=== PATIENT | female | born 1935 | race Caucasian/White ===

== ENCOUNTER → 2019-05-19 11:05 | Outpatient (NON) | payer MEDICARE, SELFPAY ==
[2019-05-19 11:25] LABS: Influenza Control Valid (Valid)
== END ==
PROVIDERS: Visit Provider Family Medicine
DX: R05 Cough (principal); R50.9 Fever, unspecified
CPT/HCPCS: 87804

== ENCOUNTER 2019-12-18 13:45 | Outpatient (CLI) | payer MEDICARE, SELFPAY | END 2019-12-18 13:46 | disposition home or self-care (01) | LOC: CHSLAB 13:49 | PROVIDERS: Visit Provider Specialist | DX: C44.529 Squamous cell carcinoma of skin of other part of trunk (principal) | CPT/HCPCS: 88305 ==

== ENCOUNTER 2020-02-21 06:21 | Outpatient (NON) | payer MEDICARE, SELFPAY ==
[2020-02-21 07:00] LABS: Hemoglobin A1C 5.4 % (<5.7)
[2020-02-21 07:22] LABS: Anion Gap 9 mmol/L (8-16); Blood Urea Nitrogen 27 mg/dL (7-18); Calcium 10.6 mg/dL (8.5-10.1); Carbon Dioxide 31 mmol/L (21-32); Chloride 105 mmol/L (98-108); Cholesterol 202 mg/dL (0-200); Estimated Glomerular Filt Rate > 60; Glucose 96 mg/dL (70-99); HDL Direct 43 mg/dL (40-60); LDL Cholesterol Calculated 136 mg/dL (<130); Osmolality Calculated 305 mOsm/kg (285-295); Potassium 3.5 mmol/L (3.5-5.1); Sodium 145 mmol/L (136-145); Thyroid Stimulating Hormone 4.54 uIU/mL (0.36-3.74); Triglycerides 113 mg/dL (0-150)
[2020-02-27 12:24] LABS: Vitamin D 25 Hydroxy 34 ng/mL (30-100)
== END 2020-02-21 06:22 ==
LOC: CHSLAB 06:22
PROVIDERS: Visit Provider Registered Nurse
DX: E55.9 Vitamin D deficiency, unspecified (principal); J45.909 Unspecified asthma, uncomplicated; I50.9 Heart failure, unspecified; E78.5 Hyperlipidemia, unspecified; I10 Essential (primary) hypertension; E11.9 Type 2 diabetes mellitus without complications
CPT/HCPCS: 36415; 80048; 80061; 82306; 83036; 84443

== ENCOUNTER 2020-04-02 19:33 | Emergency (ER) | payer MEDICARE, SELFPAY ==
--- NOTE | ~2020-04-02 | XR_ITS ---
EXAMINATION: XR chest 1V portable INDICATION: Shortness of breath TECHNIQUE: Portable AP chest at 2056 hours COMPARISON: 07/27/2018 FINDINGS: There is a large hiatal hernia with much of the stomach appearing to be within the thorax. Passive atelectasis is noted adjacent to the hernia. No definite acute airspace opacities are identif ied. There is no pleural effusion or pneumothorax. The heart size is normal. There is advanced osteoa rthritis of the shoulders. IMPRESSION: 1. Large hiatal hernia with associated passive atelectasis. Reviewed, dictated and finalized at location A. RIBUTION TECH
--- NOTE | ~2020-04-02 | CT_ITS ---
EXAMINATION: CTA chest PE protocol DATE: 04/02/2020 22:39 INDICATION: Shortness of breath and hypoxia TECHNIQUE: Computed tomography angiography (CTA) of the chest was performed with 100 mL Omnipaque-350 intravenous contrast timed to evaluate the pulmonary arteries. Coronal maximum intensity projection 3D-reconstructions were created by the technologist. The dose-length product (DLP) was 1001.04 mGy-cm . Automated exposure control and iterative reconstruction technique were employed. COMPARISON: 02/02/2018 FINDINGS: The pulmonary arteries are well-opacified. No pulmonary embolism is identified. There is a large hiatal hernia. The stomach is nearly entirely intrathoracic with a small portion of the fundus intra-abdominal in location. There is passive atelectasis in the lower lobes caused by the hiatal her [place]. There are also minimal dependent airspace opacities in the lungs. No pleural effusion or pneumot horax is identified. There is right atrial enlargement of the heart. Areas of smooth interlobular sep zachery thickening are noted. No pathologically enlarged thoracic lymph nodes are identified. There is se laila thoracic spondylosis. The gallbladder is surgically absent. IMPRESSION: 1. No pulmonary embolism. 2. Large hiatal hernia with all but the gastric fundus intrathoracic in location. 3. Dependent airspace opacities consistent with atelectasis and possibly pneumonia. 3. Mild pulmonary edema. Reviewed, dictated and finalized at location A. LINING MACHINE FEEDER IMPRESSION: 1. No pulmonary embolism. 2. Large hiatal hernia with all but the gastric fundus intrathoracic in locatio n. 3. Dependent airspace opacities consistent with atelectasis and possibly pneumo [place]. 3. Mild pulmonary edema.
--- NOTE | ~2020-04-02 | CT_ITS ---
EXAMINATION: CT knee RT wo con DATE: 04/02/2020 20:12 INDICATION: Right knee pain, initial encounter TECHNIQUE: Computed tomography (CT) of the right knee was performed without intravenous contrast. The dose-length product (DLP) was 525.22 mGy-cm. Automated exposure control and iterative reconstruction technique were employed. COMPARISON: 07/09/2017 FINDINGS: The bones are osteopenic. There is an acute, traumatic, closed, impacted, transverse fractu re of the distal femur just above the femoral condyles. Alignment is essentially anatomic. There is m ild osteoarthritis of the knee. A small knee joint effusion is present. There is diffuse loss of musc le mass in the leg. Soft tissue swelling surrounds the knee. IMPRESSION: 1. Acute transverse fracture of the distal femur just above the femoral condyles. Reviewed, dictated and finalized at location A. INUOUS IMPROVEMENT BLACK BELT IMPRESSION: 1. Acute transverse fracture of the distal femur just above the femoral condyle s.
[2020-04-02 19:55] VITALS: BP 140/97; PULSE 86; RESP 18; TEMP 36.6; O2SAT 91
--- NOTE | 2020-04-02 20:10 | PC.NURSE ---
Pt noted to be satting between 88 and 91% on 4L NC, pt denies home O2, denies sob, lung sound clear, no increase work of breathing noted. Pt regularly undergoes covid testing at the group home and per EMS had a negative test this week. Day made aware.
--- NOTE | 2020-04-02 20:13 | ECG_ITS ---
Measurements Intervals [place] Rate: 119 P: [place]: 0 QRS: 47 QRSD: 103 T: 250 QT: 283 QTc: 399 Interpretive Statements ATRIAL FIBRILLATION WITH RAPID VENTRICULAR RESPONSE INCOMPLETE RIGHT BUNDLE BRANCH BLOCK ST-T WAVE ABNORMALITY IN ANTEROLAT/INF LEADS- CONSIDER ISCHEMIA BASELINE WANDER- I, II, III, AVR, AVF, V1-V6 ABNORMAL ECG Electronically Signed On 04-03-2020 8:59:23 DIRECTOR CONSUMER AFFAIRS by Royn Kapoor D.O.
--- NOTE | 2020-04-02 20:24 | ED.LOWEXIN ---
HPI - Extremity Injury (Lower) General Chief Complaint: Extremity Injury, Lower Stated Complaint: AMB Time Seen by Provider: 04/02/20 20:05 Source: patient and EMS Mode of arrival: EMS Limitations: clinical condition History of Present Illness HPI Narrative: Patient evidently fell out of wheelchair onto right knee and comes in with right knee pain. She is on an anticoagulant for her a fib. The right knee appears tender to touch, and appears swollen. It is estimated this happened 30 minutes ago. She complains of moderately severe pain, made worse by moving the knee. MD complaint: knee injury Place: home Severity: severe Severity scale (1-10): 7 Relieving factors: rest Exacerbating factors: movement Context: direct blow and other (fall) Associated symptoms: swelling Related Data Home Medications Medication Instructions Recorded Confirmed Ca cmb no.1-vit [id number] 1 tablet PO DAILY 04/02/20 04/02/20 [Vitamin D3 (calcium cit-phos)] carvedilol 6.25 mg PO BID 04/02/20 04/02/20 fluticasone propion-salmeterol 2 inh INHALATION PRN PRN 04/02/20 04/02/20 [Advair HFA] furosemide [Lasix] See Rx Instructions .ROUTE .COMPLEX 04/02/20 04/02/20 hydrochlorothiazide 12.5 mg PO BID 04/02/20 04/02/20 magnesium hydroxide [Ex-Lax Milk 400 mg PO DAILY PRN 04/02/20 04/02/20 of Magnesia] potassium chloride 20 meq PO BID 04/02/20 04/02/20 rivaroxaban [Xarelto] 20 mg PO DAILY 04/02/20 04/02/20 sertraline [Zoloft] 50 mg PO DAILY 04/02/20 04/02/20 Allergies Allergy/AdvReac Type Severity Reaction Status Date / Time atorvastatin Allergy Unknown Unknown Verified 04/02/20 20:18 Review of Systems Constitutional: Constitutional: Reports no additional constitutional complaints Eyes: Eyes: Reports no additional eye complaints ENT: Reports system reviewed and no additional complaints, except as documented Cardiovascular: Cardiovascular: Reports no additional cardiovascular complaints Respiratory: Comments: moderate shortness of breath Gastrointestinal: Gastrointestinal: Reports no additional gastrointestinal complaints Genitourinary: Genitourinary: Reports no additional female genitourinary complaints Musculoskeletal: Musculoskeletal: Reports no additional musculoskeletal complaints Integumentary/Breasts: Skin/Breast: Reports system reviewed and no additional complaints, except as docu Neurologic: Reports system reviewed and no additional complaints, except as documented Psychiatric: Psychiatric: Reports no additional psychiatric complaints Endocrine: Endocrine: Reports no additional endocrine complaints Hematologic/Lymphatic: Hematologic/Lymphatic: Reports no additional hematologic/lymphatic complaints Allergic/Immunologic: Allergic/Immunologic: Reports no additional allergic/immunologic complaints PMFSH Past Medical History Medical History Afib CHF (congestive heart failure) Osteoporosis Paraplegia Polio Surgical History Surgical History (Updated 04/02/20 @ 23:31 by Luis Jiménez MD) H/O left knee surgery Family History Family History Other Depression Diabetes mellitus Family history of cardiovascular disease Family history of suicide Hypertension Social History Social History (Updated 04/02/20 @ 23:32 by Luis Jiménez MD) Smoking status: Former smoker Alcohol intake: former Exam Const: General: no acute distress and alert HENMT: Head: normal to inspection Other: Neck has areas of superficial blood by no hematoma is seen, neck is supple and she can move her neck through range of motion without difficulty. She did not hit her head, but apparently scraped her chin. Eyes: General: appearance normal, both eyes and all related structures Conjunctivae: conjunctivae normal Neck: Other: superficial blood,no hematoma Chest: Chest palpation & inspection: normal inspection of the chest Resp
[2020-04-02 20:35] LABS: Basophils Absolute Auto 0.01 K/mm3 (0.00-0.10); Basophils Percent Auto 0.1 % (0.0-1.0); Eosinophils Absolute Auto 0.06 K/mm3 (0.02-0.50); Eosinophils Percent Auto 0.9 % (1.0-6.0); Hematocrit 44.1 % (35.0-42.0); Hemoglobin 14.8 g/dL (11.7-13.8); Immature Granulocyte Absolute 0.02 K/mm3 (0.00-0.00); Immature Granulocyte Percent A 0.3 % (0.0-0.0); Lymphocytes Absolute Auto 1.56 K/mm3 (1.10-4.50); Mean Corpuscular HGB Conc 33.6 g/dL (32.0-36.0); Mean Corpuscular Hemoglobin 34.3 pg (27.0-31.0); Mean Corpuscular Volume 102.3 fL (78.0-102.0); Mean Platelet Volume 9.5 fl (9.2-11.8); Monocytes Absolute Auto 0.14 K/mm3 (0.10-0.90); Monocytes Percent Auto 2.1 % (2.0-11.0); Neutrophils Percent Auto 73.6 % (50.0-70.0); Platelet Count Result 200 K/mm3 (150-420); Red Blood Count 4.31 M/mm3 (4.20-5.40); Red Cell Distribution Width 13.6 % (11.6-14.4); White Blood Count 6.8 K/mm3 (4.8-10.8)
[2020-04-02 20:50] LABS: BNP 123 pg/mL (0-100)
[2020-04-02] MEDS: HYDROcodone/acetaminophen (*CRX) 5-325 MG TABLET 1 TAB PO (20:52)
[2020-04-02 20:53] LABS: Alanine Aminotransferase 23 U/L (14-59); Albumin Level 3.6 g/dL (3.4-5.0); Alkaline Phosphatase 112 U/L (46-116); Anion Gap 7 mmol/L (8-16); Aspartate Amino Transferase 19 U/L (15-37); Bilirubin,Total 0.8 mg/dL (0.00-1.00); Blood Urea Nitrogen 19 mg/dL (7-18); Calcium 10.9 mg/dL (8.5-10.1); Carbon Dioxide 30 mmol/L (21-32); Chloride 101 mmol/L (98-108); Estimated CRCL calculation 48 ml/min; Estimated Glomerular Filt Rate > 60; Glucose 169 mg/dL (70-99); Osmolality Calculated 292 mOsm/kg (285-295); Potassium 3.1 mmol/L (3.5-5.1); Sodium 138 mmol/L (136-145); Total Protein 7.1 g/dL (6.4-8.2); Troponin I 6.1 ng/L (0.00-60.4)
[2020-04-02 20:55] LABS: SARS-CoV-2 Ag Negative (Negative)
--- NOTE | 2020-04-02 21:00 | ECG_ITS ---
Measurements Intervals [place] Rate: 87 P: [place]: 0 QRS: 47 QRSD: 99 T: -27 QT: 311 QTc: 375 Interpretive Statements ATRIAL FIBRILLATION ST-T WAVE ABNORMALITY IN ANTEROLAT/INF LEADS- CONSIDER ISCHEMIA ABNORMAL ECG Electronically Signed On 04-03-2020 9:00:10 ROLL ON WORKER by Rony Kapoor D.O.
--- NOTE | 2020-04-02 21:07 | PC.NURSE ---
Pt noted to desat to 86 on 4L NC, titrated to 6L NC and saturation improves to 91%. Day made aware and orders to be placed.
[2020-04-02 21:21] LABS: Base Excess ABG 1.8 mmol/L (0-2); HCO3 ABG 24.5 mmol/L (23-29); Oxygen Content ABG 19.4 %vol (16.0-22.0); Oxygen Saturation ABG 88.2 % (95-97); Oxyhemoglobin 87.8 % (94-100); PCO2 ABG 33.4 mmHg (35-45); PO2 ABG 51.5 mmHg (75-85); Total Hemoglobin 15.8 g/dL; pH ABG 7.48 (7.35-7.45)
[2020-04-02 21:22] LABS: Device NASAL CANNULA; Modified Allen's Test Pass; Site Drawn LEFT RADIAL
[2020-04-02 21:41] LABS: Magnesium 1.8 mg/dL (1.8-2.4)
[2020-04-02] MEDS: ONDANSETRON INJ 4 MG/2 ML VIAL IV PUSH (21:56)
[2020-04-02] MEDS: HYDROmorphone HCL INJ (*CRX) 2 MG/ML VIAL 0.5 MG IV PUSH (21:56)
--- NOTE | 2020-04-02 22:41 | PC.NURSE ---
Pt had an episode of coughing and desated to 77% on 6LNC, NRB applied and saturation improved to 94%. Pt remains drowsy, but responsive to verbal stimuli. Pt then transported to CT on monitor with this RN, pt tolerated CT without difficulty/ issue and then transported back to ED. Upon return from CT pt continues to sat 92% on NRB. MD Jessy aware, no new orders at this time, awaiting CT results.
--- NOTE | 2020-04-02 22:47 | PC.NURSE ---
Pt noted to require O2 at this time, denies chest pain, lung sounds clear. 4+ pitting edema noted to legs bilaterally. Pt has a productive cough with clear thick sputum. Pt is drowsy but responds to verbal stimuli and oriented x4. Pt freely moves bilateral upper extremities but r/t polio as a child has no movement of her legs, sensation intact. Abdomen is soft, round, and nondistended, denies pain or tenderness. Pt is noted to be incont of urine and depends changed upon arrival to ED. Skin is warm and dry to touch, generalized edema noted, bruising noted throughout hands/ arms and on chin/ neck r/t fall per senior care. Pt denies neck pain and no tenderness with palpation and can freely move neck without pain or difficulty.
[2020-04-02] MEDS: FUROSEMIDE INJ 40 MG/4 ML VIAL IV PUSH (23:33)
[2020-04-02] MEDS: POTASSIUM CHLORIDE 20 MEQ TABLET 40 MEQ PO (23:33)
[2020-04-02 23:44] VITALS: PULSE 136
[2020-04-02] MEDS: METOPROLOL TARTRATE INJ 5 MG/5 ML VIAL 2.5 MG IV PUSH (23:44)
[2020-04-02 23:49] LABS: Appearance Urine Clear (Clear); Bilirubin Urine Negative (Negative); Color Urine Yellow (Yellow); Glucose Urine UA Negative (Negative); Ketones Urine Negative (Negative); Leukocyte Esterase Ur 1+ (Negative); Nitrate Urine Positive (Negative); Protein Urine Negative (Negative); Specific Grav Ur 1.015 (1.010-1.020); Urobilinogen Urine 0.2 mg/dL (0.2-1.0); pH Urine 5.5 (5.0-8.0)
[2020-04-02 23:55] LABS: Add Urine Microscopic? YES; Bacteria Urine 4+ /hpf; Blood Urine Trace-Lysed (Negative); Squamous Epithelial Cell Urine Rare /hpf (Few); WBC Urine 51-75 /hpf (0-3)
[2020-04-03 00:14] VITALS: BP 97/82; PULSE 124; RESP 20; TEMP 36.9; O2SAT 93
[2020-04-03 00:20] VITALS: BP 97/84; PULSE 111
--- NOTE | 2020-04-03 01:25 | PC.NURSE ---
Addendum entered by Jasbir Downs RN 04/03/20 01:26: 0030 [facility] HERE, DEPARTED 0045 Original Note: 0010 [facility] HERE, REPORT GIVEN. PT ASSISTED TO EMS COT. TOLERATED WELL , DENIES PAIN
== END 2020-04-03 00:45 | disposition short-term general hospital (02) ==
PROVIDERS: Emergency Provider Emergency Medicine; PCP Family Medicine
DX: I50.21 Acute systolic (congestive) heart failure (principal); I48.91 Unspecified atrial fibrillation; J96.01 Acute respiratory failure with hypoxia; M81.0 Age-related osteoporosis without current pathological fracture; Z87.891 Personal history of nicotine dependence
CPT/HCPCS: 36415; 36600; 71045; 71275; 73700; 80053; 81001; 82805; 83735; 83880; 84484; 85025; 87426; 93005; 96374; 96375; 99285; A9270; J1170; J1940; J2405; Q9965; Q9967

== ENCOUNTER 2020-04-03 02:11 | Inpatient (IN) | payer MEDICARE, MEDICAID, SELFPAY ==
[2020-04-03] VITALS (15 sets, daily range): BP systolic 99–108; BP diastolic 67–79; PULSE 105–148; RESP 20–36; TEMP 36.6–37.2; O2SAT 92–95; BMI 38.7
--- NOTE | 2020-04-03 | ECHO_ITS ---
Patient Info Name: Denice Pro Age: 84 years : 1935 Gender: Female Ht: 61 in Wt: 205 lbs BSA: 2.05 m2 HR: 145 bpm BP: 100 / 73 mmHg Technical Quality: Poor Exam Date: 04/03/2020 9:28 AM Exam Location: [facility] Patient Status: Outpatient Admit Date: 04/03/2020 Staff Ordering Physician: Lolly Deleon DO Preschool Director: Nandini Kennedy RDCS Attending Provider: Lolly Deleon DO Referring Physician: Pancho GAITAN; Exam Type: CA echo doppler color flow Study Info Indications - FLUID OVERLOAD R06.00 - Dyspnea, unspecified Complete two-dimensional, color flow and Doppler transthoracic echocardiogram is performed. Reason for Poor Study: poor echocardiographic windows Summary 1. Complete two-dimensional, color flow and Doppler transthoracic echocardiogram is performed. 2. Left ventricular systolic function is normal, estimated at 60-65%. 3. The left ventricular diastolic function is abnormal. 4. Right ventricular chamber dimension is moderately enlarged. 5. Right ventricular systolic function is reduced. 6. Right atrial chamber dimension is severely enlarged. 7. There is mild aortic valve stenosis with a peak velocity of 291 cm/s, mean gradient of 13 mmHg. This was very difficult echocardiogram and the gradient in the aortic valve could be related to the hyper contractility and possibly intracavitary obstruction. Patient is Atrial fibrillation with rapid ventricular response. Would reassess the severity of the aortic valve stenosis with the heart rate is well controlled. 8. There is trace aortic valve regurgitation. 9. No pulmonary hypertension, estimated pulmonary arterial systolic pressure is 45 mmHg. 10. Technically very challenging study. Left Ventricle Left ventricular chamber dimension is normal. Left ventricular systolic function is normal, estimated at 60-65%. There is no increased left ventricular wall thickness. Left ventricular septal wall motion is normal. The left ventricular diastolic function is abnormal. Right Ventricle Right ventricular chamber dimension is moderately enlarged. Right ventricular systolic function is reduced. Left Atria Left atrial chamber dimension is normal. Right Atria Right atrial chamber dimension is severely enlarged. Aortic Valve The aortic valve is not well visualized. There is no aortic valve sclerosis. There is mild aortic valve stenosis with a peak velocity of 291 cm/s, mean gradient of 13 mmHg. This was very difficult echocardiogram and the gradient in the aortic valve could be related to the hyper contractility and possibly intracavitary obstruction. Patient is Atrial fibrillation with rapid ventricular response. Would reassess the severity of the aortic valve stenosis with the heart rate is well controlled. There is trace aortic valve regurgitation. Pulmonic Valve The pulmonic valve is normal. There is no pulmonic valve stenosis. There is no pulmonic regurgitation. Mitral Valve The mitral valve has normal leaflets. There is no mitral valve stenosis. There is no mitral valve regurgitation. Tricuspid Valve The tricuspid valve leaflets are normal. There is no significant tricuspid valve stenosis. There is severe tricuspid valve regurgitation. No pulmonary hypertension, estimated pulmonary arterial systolic pressure is 45 mmHg. Pericardium/Pleural There is small pericardial effusion. Inferior Vena Cava Normal inferior vena cava with >50% collapse upon inspi
--- NOTE | ~2020-04-03 | XR_ITS ---
EXAMINATION: XR chest 1V portable DATE: 04/03/2020 06:36 INDICATION: Dyspnea TECHNIQUE: frontal view of the chest was obtained. COMPARISON: Chest radiograph dated 04/02/2020 FINDINGS: Again seen is a large gas containing hiatal hernia projecting over the heart which appears mildly enl arged. There are opacities at the bilateral lung bases. Scattered linear opacities including peripher al Chad B-lines at the right mid and lower lung zones likely representing combination of discoid at electasis and mild pulmonary edema. No pneumothorax. IMPRESSION: 1. Likely congestive heart failure with cardiomegaly and mild pulmonary edema. 2. Opacities at the bilateral lung bases and favor atelectasis over pneumonia. 3. Large hiatal hernia. Reviewed, dictated and finalized at location [facility] [employer]
--- NOTE | 2020-04-03 01:35 | ADMGEN ---
This patient, Denice Pro, was admitted to IMU Room 206-02 at 0115. Patient/family oriented to hospital policies and general routines including ID bracelet, bed and alarms, visiting hours, pain management, procedures, bathroom and other care routines, personal items, smoking policy, room service/diet, and visiting hours. Information on how to activate the Rapid Response Team has been discussed. Patient/Family are encouraged to report perceived risks to care and to ask questions if they do not understand what they are told or what they should do.
--- NOTE | 2020-04-03 01:48 | PM.IMHP ---
H&P: HPI History of Present Illness Date/Time: 04/03/20 01:48 Chief Complaint: Fall, right knee pain Narrative: Denice Pro is a 84 year old female from group home with past medical history of hypertension, AFib on Xarelto, history of aspiration pneumonia, congestive heart failure with reduced EF 53%, history of polio paraplegia of lower extremities presents to the ED after falling out of the wheelchair hitting her right knee. History was obtained from chart review and patient. Patient had some understanding of her medical conditions however was falling asleep during my interview. She thinks she lives alone even though she lives in group home. In the ED: Patient had right knee x-ray showing fracture. She has developed dyspnea requiring oxygen and chest x-ray suggested heart failure fluid overload. She was given Lasix 40 mg IV and 40 mEq of potassium. She was also given Lopressor 2.5 mg IV for AFib with RVR with improvement of heart rate going down to the 90s. Patient was then admitted to [facility] for further management fluid overload, acute hypoxic respiratory failure, and right femur fracture. Review of Systems Review of Systems: Narrative: Patient appears to be confused, may have some underlying dementia/delirium? Constitutional: No Fever, No Chills, No Night Sweats, No Fatigue, No Malaise ENT/Mouth: No Hearing Changes, No Ear Pain, No Nasal Congestion, No Sinus Pain, No Hoarseness, No sore throat, No Rhinorrhea, No Swallowing Difficulty Eyes: No Eye Pain, No Redness, No Vision Changes Cardiovascular: No Chest Pain, No Palpitations, No Dyspnea on Exertion, No Orthopnea, No Claudication, No Edema Respiratory: No Cough, No Sputum, No Wheezing, No Shortness of Breath Gastrointestinal: No Nausea, No Vomiting, No Diarrhea, No Constipation, No Abdominal Pain, No Heartburn, No Hematochezia, No Melena Genitourinary: No Dysuria, No Urinary Frequency, No Hematuria, No Urinary Incontinence, No Urgency Musculoskeletal: No Arthralgias, No Myalgias, No Joint Swelling, No Joint Stiffness, No Back Pain Skin: No Skin Lesions, No Pruritis, No Hair Changes Neuro: No Weakness, No Numbness, No Paresthesias, No Loss of Consciousness, No Syncope, No Dizziness, No Headache Psych: No Anxiety/Panic, No Depression, No Insomnia Heme: No Bruising, No Bleeding Lymph: No Adenopathy Endocrine: No Polyuria, No Polydipsia, No Temperature Intolerance ROS unobtainable: Yes unobtainable due to mental status PMFSH Past Medical History Medical History (Updated 04/03/20 @ 04:45 by Lolly Deleon DO) CHF (congestive heart failure) Essential hypertension Osteoporosis Paraplegia Persistent atrial fibrillation Polio Surgical History Surgical History (Updated 04/03/20 @ 04:45 by Lolly Deleon DO) H/O cardiac catheterization H/O left knee surgery H/O: hysterectomy History of ankle surgery Bilateral History of cholecystectomy Family History Family History (Updated 04/03/20 @ 04:46 by Lolly Deleon DO) Father Acute myocardial infarction Mother Cerebrovascular accident Hypertension Sibling Lung cancer Other Depression Diabetes mellitus Family history of cardiovascular disease Family history of suicide Social History Social History (Updated 04/03/20 @ 04:46 by Lolly Deleon DO) Smoking status: Former smoker Alcohol intake: former Substance use: never Living arrangements: group home Gender identity (if verbalized by the patient): Female Spiritual care concerns: No Meds Home Medications and Allergies Home Medications Medication Instructions Recorded Confirmed Type Ca cmb no.1-vit [id number]-B12 1 tablet PO DAILY 04/02/20 04/03/20 History [Vitamin D3 (calcium cit-phos)] carvedilol 6.25 mg PO BID 04/02/20 04/03/20 History fluticasone propion-salmeterol 2 inh INHALATION PRN PRN 04/02/20 04/03/20 History [Advair HFA] furosemide [Lasix] 40 mg PO HS 04/02/20 1
[2020-04-03] MEDS: METOPROLOL TARTRATE INJ 5 MG/5 ML VIAL IV PUSH (02:20)
[2020-04-03] MEDS: carvediloL 6.25 MG TABLET PO (04:04)
[2020-04-03] MEDS: POTASSIUM CHLORIDE 20 MEQ TABLET PO (04:04)
[2020-04-03 05:09] LABS: Basophils Percent Auto 0.2 % (0.2-1.2); Eosinophils Percent Auto 0.1 % (0-4.4); Hematocrit 49.6 % (37.0-47.0); Hemoglobin 16.2 g/dL (12.0-15.0); Immature Granulocyte Absolute 0.16 K/mm3 (0.00-0.031); Immature Granulocyte Percent A 0.8 % (0-0.5); Lymphocytes Absolute Auto 2.28 K/mm3 (0.9-3.2); Mean Corpuscular HGB Conc 32.7 g/dl (32-36); Mean Corpuscular Hemoglobin 33.3 pg (26-34); Mean Corpuscular Volume 101.8 fl (80-100); Mean Platelet Volume 9.7 fl (7.4-10.4); Monocytes Absolute Auto 0.7 K/mm3 (0.1-0.6); Monocytes Percent Auto 3.5 % (2.6-8.5); Neutrophils Absolute Auto 17.6 K/mm3 (1.3-6.7); Neutrophils Percent Auto 84.4 % (45.5-73.1); Platelet Count Result 235 k/mm3 (150-375); Red Blood Count 4.87 M/mm3 (4.2-5.4); Red Cell Distribution Width 13.9 % (11.5-14.5); White Blood Count 20.8 K/mm3 (4.5-10.0)
[2020-04-03 05:22] LABS: Anion Gap 10 mmol/L (8-16); Blood Urea Nitrogen 24 mg/dL (7-17); Carbon Dioxide 31 mmol/L (22-30); Chloride 98 mmol/L (98-107); Estimated CRCL calculation 38 ml/min; Estimated Glomerular Filt Rate 53; Glucose 202 mg/dL (65-105); Magnesium 2.3 mg/dL (1.6-2.3); Potassium 3.3 mmol/L (3.4-5.0); Sodium 139 mmol/L (137-145)
--- NOTE | 2020-04-03 07:29 | PCRCNOTE ---
waiting formed clarification
[2020-04-03] MEDS: SERTRALINE HCL 50 MG TABLET PO (08:08)
[2020-04-03] MEDS: FUROSEMIDE INJ 40 MG/4 ML VIAL IV PUSH (08:08)
[2020-04-03] MEDS: polyethylene glycoL 3350 17 GM POWD.PACK PO (08:09)
[2020-04-03] MEDS: POTASSIUM CHLORIDE 20 MEQ TABLET.ER PO (09:01)
--- NOTE | 2020-04-03 09:25 | PM.CNCAR ---
Assessment and Plan Assessment and plan (1) Atrial fibrillation with RVR: Code(s): I48.91 - Unspecified atrial fibrillation Status: Acute Assessment and Plan: Currently patient AFib with RVR with low blood pressure.. At home she takes Coreg 6.25 mg b.i.d. Administered IV amiodarone for rate control. Hold Xarelto in anticipation for possible surgery. (2) Acute respiratory failure with hypoxia: Code(s): J96.01 - Acute respiratory failure with hypoxia Status: Acute Assessment and Plan: Fluid overload. Most likely related to acute diastolic heart failure exacerbation secondary to AFib with RVR. Will control the atrial fibrillation. Administer more dosages of Lasix as needed (3) CHF (congestive heart failure): Qualifiers: Heart failure chronicity: acute Heart failure type: systolic Qualified Code(s): I50.21 - Acute systolic (congestive) heart failure Code(s): I50.9 - Heart failure, unspecified Status: Acute Assessment and Plan: History of diastolic heart failure as well as right ventricular failure. (4) Right femoral fracture: Code(s): S72.91XA - Unspecified fracture of right femur, initial encounter for closed fracture Status: Acute Assessment and Plan: She will be stable to undergo surgery once we control the heart rate. Unsure the last dosage of the Xarelto. Hold Xarelto. History of Present Illness History of Present Illness Consult date/time: Date of service 04/03/20 09:25 Requesting physician: Ada Ramirez MD Consult reason: atrial fibrillation and pre-op evaluation Reason For Visit: Acute hypoxic resp failure, CHF Exacerbation Narrative: This is a 84-year-old patient with past medical history of hypertension, paraplegia related to polio, atrial fibrillation, severe right atrial enlargement with severe tricuspid valve regurgitation. Moderate right ventricular hypokinesis. Her last echo 2017 shows normal LV systolic function. She lives in [facility]. Apparently filled from the wheelchair and hit her right leg and developed fracture. She came to the emergency room he was short of breath with AFib with RVR. She was given IV Lasix and some metoprolol. She is currently on non-rebreather. His systolic blood pressure is low. She remains in AFib with RVR heart rate 140-150 beats per minute.. She is somnolent. According to the notes she is not sure if the patient can swallow pills. Serum creatinine 1, BUN 20, potassium on admission 3.1 and today 3.3. Normal hemoglobin. Chest x-ray reviewed myself shows mild vascular congestion large hiatal hernia. CT of the right leg shows fracture of the distal femur. EKG interpreted myself shows AFib with RVR and ST depression V4 to V6. Review of Systems Review of Systems: ROS unobtainable: Yes unobtainable due to medical condition and unobtainable due to mental status PMFSH Past Medical History Medical History CHF (congestive heart failure) Essential hypertension Osteoporosis Paraplegia Persistent atrial fibrillation Polio Surgical History Surgical History H/O cardiac catheterization H/O left knee surgery H/O: hysterectomy History of ankle surgery Bilateral History of cholecystectomy Family History Family History Father Acute myocardial infarction Mother Cerebrovascular accident Hypertension Sibling Lung cancer Other Depression Diabetes mellitus Family history of cardiovascular disease Family history of suicide Social History Social History Smoking status: Former smoker Alcohol intake: former Substance use: never Living arrangements: [facility] Gender identity (if verbalized by the patient): Female Spiritual care concerns: No Med
[2020-04-03] MEDS: AMIODARONE 150 MG/D5W 100 ML 150 MG/100 ML BAG 600 MG IV CONT (10:41)
--- NOTE | 2020-04-03 10:58 | PCPTNOTE ---
Attempted PT/OT evals. Awaiting Ortho consult and need for skilled therapy.
[2020-04-03] MEDS: AMIODARONE 360 MG/D5W 200 ML 360 MG/200 ML BAG 33.33 MG IV CONT (11:01)
--- NOTE | 2020-04-03 12:35 | PM.IMPN ---
Progress Note: A&P Assessment and Plan (1) CHF exacerbation: Qualifiers: Heart failure type: systolic Qualified Code(s): I50.23 - Acute on chronic systolic (congestive) heart failure Code(s): I50.9 - Heart failure, unspecified Status: Acute Assessment and Plan: CXR reviewed Echo reviewed Increase lasix to 40 mg iv bid (2) Atrial fibrillation with RVR: Code(s): I48.91 - Unspecified atrial fibrillation Status: Acute Assessment and Plan: -chronic persistent AFib on Xarelto for anticoagulation and Coreg for rate control Pt to start amiodarone drip Cardiology consulted (3) Acute respiratory failure with hypoxia: Code(s): J96.01 - Acute respiratory failure with hypoxia Status: Acute Assessment and Plan: Treat underlying CHF Supportive care with oxygen to keep oxygen saturation greater 90% Pt has history of aspiration pneumonia Keep npo order swallow test Start iv zosyn to cover CAP (4) Hypercalcemia: Code(s): E83.52 - Hypercalcemia Status: Acute Assessment and Plan: -calcium 10.9 -likely secondary to supplement calcium vitamin-D -will stop supplement for now -will follow-up calcium level (5) Right femoral fracture: Code(s): S72.91XA - Unspecified fracture of right femur, initial encounter for closed fracture Status: Acute Assessment and Plan: -patient had traumatic injury from fall onto right knee -knee CT right lower extremity confirms acute transverse fracture of distal femur just above the femoral condyles. Findings on CT alignment essentially anatomic. Mild osteoarthritis of the knee -patient is paraplegic and does not bear weight on right lower extremity as per admission note (6) CAP (community acquired pneumonia): Code(s): J18.9 - Pneumonia, unspecified organism Status: Acute Assessment and Plan: Start iv zosyn to cover CAP order BC order WCC Order Start ABG Subjective Date/time seen: 04/03/20 12:35 Interval history: Inocencia is a 84 year old female from [facility] with past medical history of hypertension, AFib on Xarelto, history of aspiration pneumonia, congestive heart failure with reduced EF 53%, history of polio paraplegia of lower extremities presents to the ED after falling out of the wheelchair hitting her right knee. Pt is breathing fast and looks unwell in the room. SOB at rest with AF with RVR. Review of Systems Review of Systems: All systems reviewed & are unremarkable except as noted in HPI and below Exam Narrative: Exam Narrative: - GENERAL: elderly unwell sob at rest on high flow oxygen - LUNGS: diminished lung sounds - CARDIOVASCULAR: Tachycardic rate irregular rhythm. - ABDOMEN: Soft, non-tender and non-distended. - EXTREMITIES: Bilateral pitting edema 2+. Paraplegic, patient does not move her legs, feet are rotated out laterally (history of bilateral ankle surgery). - NEUROLOGIC: Chronic lower extremity neurological deficits motor function from polio. - PSYCHIATRIC: Arousable and oriented to self. Appropriate mood and affect. Answers some questions appropriately. She was falling asleep during my exam. - SKIN: No rashes or lesions. Warm. Some erythema on neck midline - LYMPH: No cervical lymphadenopathy. Objective Data Vital Signs Vital Signs: Vital Signs - 24 hr 04/03/20 01:30 04/03/20 01:40 04/03/20 02:00 Temperature 36.6 C Pulse Rate 133 H 147 H 105 H Respiratory Rate 24 H Blood Pressure 99/67 L Pulse Oximetry 94 94 04/03/20 02:20 04/03/20 04:00 04/03/20 04:04 Temperature 36.6 C Pulse Rate 136 H 116 H 122 H Respiratory Rate 22 H Blood Pressure 100/73 Pulse Oximetry 92 04/03/20 06:00 04/03/20 07:38 04/03/20 08:00 Temperature 36.6 C Pulse Rate 128 H 115 H 130 H Respiratory Rate 20 Blood Pressure 105/79 Pulse Oximetry 92 04/03/20 08:28 04/03/20 10:31 04/03/20 10:41 Temperature Pulse Rate
[2020-04-03 12:58] LABS: Alveolar/Arterial O2 Gradient 636.4 mmHg; Base Excess ABG -2.5 mEq/l (+/-2.0); Fractional Inspired Oxygen 100 %; HCO3 ABG 19.7 mEq/l (22.0-26.0); Oxygen Content ABG 21.1 %vol (16.0-22.0); Oxyhemoglobin 85.2 % THb (90.0-100.0); PCO2 ABG 28.7 mmHg (35.0-45.0); PO2 FiO2 Ratio Arterial Blood 0.48 %; Total Hemoglobin 17.7 g/dL (12.0-18.0); pH ABG 7.454 (7.350-7.450)
[2020-04-03 12:59] LABS: Device NON-REBREATHER MASK; Modified Allen's Test Pass; Oxygen Saturation ABG 86.3 % (95.0-100.0); PO2 ABG 47.9 mmHg (80.0-100.0); Site Drawn LEFT RADIAL
[2020-04-03] MEDS: LORazepam INJ (*CRX) 2 MG/ML VIAL 0.5 MG IV PUSH (13:48)
[2020-04-03] MEDS: MORPHINE SULFATE (*CRX) 2 MG/ML INJ 1 MG IV PUSH (13:51)
[2020-04-03] MEDS: FUROSEMIDE INJ 40 MG/4 ML VIAL 20 MG IV PUSH (13:53)
--- NOTE | 2020-04-03 15:42 | PM.DDS ---
Discharge Sum: Prov Provider Primary care physician: MANAGER CONTRACTING PHYSICIAN Admitting provider: Raheel Deleon DO Consults: 04/03/20 Consult to Physician Routine Comment: NOTIFIED BY THE ED Consulting Provider: Ankit Munoz special education assistant/MD group to consult: Ortho instrumentation engineer Reason for consultation: Right femur fracture Has provider been notified: Yes Consult to Physician Routine Comment: SPOKE WITH ÓSCAR LOVELACE Consulting Provider: Óscar Lovelace Reason for consultation: AFIB RVR Has provider been notified: Yes Discharge Sum: Diag Contributing Factors (1) CHF exacerbation: (2) Atrial fibrillation with RVR: (3) Acute respiratory failure with hypoxia: (4) Hypercalcemia: (5) Right femoral fracture: (6) CAP (community acquired pneumonia): Discharge Sum: Summary Date and Time Date of admission: 04/03/20 02:11 Additional Data Attending physician: Raheel Deleon DO
--- NOTE | 2020-04-11 09:54 | PM.DS ---
DS: Admitting Diagnosis Admitting Diagnosis Admitting Diagnosis: SUMMARY 04/03 DS: Discharge Diagnosis Discharge Diagnosis (1) CHF exacerbation: Qualifiers: Heart failure type: systolic Qualified Code(s): I50.23 - Acute on chronic systolic (congestive) heart failure Code(s): I50.9 - Heart failure, unspecified Status: Acute Assessment and Plan: Acute diastolic heart failure exacerbation secondary to AFib with RVR, diuresis with lasix to 40 mg iv bid (2) Atrial fibrillation with RVR: Code(s): I48.91 - Unspecified atrial fibrillation Status: Acute Assessment and Plan: Chronic persistent AFib on Xarelto for anticoagulation and Coreg for rate control, sp pt was on amiodarone drip.Cardiology consulted (3) Acute respiratory failure with hypoxia: Code(s): J96.01 - Acute respiratory failure with hypoxia Status: Acute Assessment and Plan: Treat underlying CHF. Supportive care with oxygen to keep oxygen saturation greater 90% Pt has history of aspiration pneumonia. Start iv zosyn (4) Hypercalcemia: Code(s): E83.52 - Hypercalcemia Status: Acute Assessment and Plan: -calcium 10.9 -likely secondary to supplement calcium vitamin-D (5) Right femoral fracture: Code(s): S72.91XA - Unspecified fracture of right femur, initial encounter for closed fracture Status: Acute Assessment and Plan: -patient had traumatic injury from fall onto right knee -knee CT right lower extremity confirms acute transverse fracture of distal femur just above the femoral condyles. Findings on CT alignment essentially anatomic. Mild osteoarthritis of the knee -patient is paraplegic and does not bear weight on right lower extremity as per admission note (6) CAP (community acquired pneumonia): Code(s): J18.9 - Pneumonia, unspecified organism Status: Acute Assessment and Plan: Start iv zosyn to cover CAP DS: Summary Hospital Course Hospital Course: Pt admitted last night for CHF exacerbation and pneumonia. unfortunately pt is not doing well respiratory rate is high pulse is high pt is not responding labored breathing mottled skin. Son notified about imminent in next few minutes to hours. Pt had a large emesis. Pt admitted with SOB and fall history of aspiration pneumonia, AF, CHF, paraplegia and old polio, uses a wheelchair in [facility] Cause likely aspiratory pneumonia, sepsis, acute respiratory failure, chf exacerbation. Pt is moaning in pain start pain medication and anxiolytic Pt is DNR Family will try to come and visit pt soon. Understand pt is actively dying. Updated about her medical problems. Time Spent with Patient Time attestation: Total time spent providing and/or coordinating discharge services: 40 minutes on the day of discharge Exam Narrative: Exam Narrative: - GENERAL: elderly unwell sob at rest on high flow oxygen - LUNGS: diminished lung sounds - CARDIOVASCULAR: Tachycardic rate irregular rhythm. - ABDOMEN: Soft, non-tender and non-distended. - EXTREMITIES: Bilateral pitting edema 2+. Paraplegic, patient does not move her legs, feet are rotated out laterally (history of bilateral ankle surgery). - NEUROLOGIC: Chronic lower extremity neurological deficits motor function from polio. - PSYCHIATRIC: Arousable and oriented to self. Appropriate mood and affect. Answers some questions appropriately. She was falling asleep during my exam. - SKIN: No rashes or lesions. Warm. Some erythema on neck midline - LYMPH: No cervical lymphadenopathy. Discharge Plan Discharge Attending physician on discharge: NATY Consulting providers: Carrington Matthews ; Frank Diehl ; Tash*,Nell Vuong ; Ankit Munoz Discharging Clinician: Ada Ramirez Anticipated Discharge Date/Time: 04/03/20 09:14 Patient Disposition: Patient Instructions: Heart Failure (DC), A-fib (Atrial Fibrillation) (DC),
--- NOTE | 2020-04-18 17:48 | PM.DDS ---
Discharge Sum: Prov Provider Primary care physician: ACCOUNT RESOLUTION SPECIALIST PHYSICIAN Admitting provider: Raheel Deleon DO Consults: 04/03/20 Consult to Physician Routine Comment: NOTIFIED BY THE ED Consulting Provider: Ankit Munoz scallop shucker/MD group to consult: Ortho projection camera operator Reason for consultation: Right femur fracture Has provider been notified: Yes Consult to Physician Routine Comment: SPOKE WITH ÓSCAR PAZ Consulting Provider: Óscar Pringle Reason for consultation: AFIB RVR Has provider been notified: Yes Discharge Sum: Diag Contributing Factors (1) CHF exacerbation: Contributing factors: Continue to diuresis with iv Lasix. (2) Atrial fibrillation with RVR: (3) Acute respiratory failure with hypoxia: Contributing factors: Treat underlying CHF. Supportive care with oxygen to keep oxygen saturation greater 90%, Continue iv diuresis. Also pt has history of aspiration pneumonia. Start iv zosyn (4) Hypercalcemia: (5) Right femoral fracture: Contributing factors: -patient had traumatic injury from fall onto right knee -knee CT right lower extremity confirms acute transverse fracture of distal femur just above the femoral condyles. Findings on CT alignment essentially anatomic. Mild osteoarthritis of the knee -patient is paraplegic and does not bear weight on right lower extremity (6) CAP (community acquired pneumonia): Contributing factors: Start iv zosyn to cover CAP, ordered BC and ABG Discharge Sum: Summary Date and Time Date of admission: 04/03/20 02:11 Pt is not doing well respiratory rate is high pulse is high pt is not responding labored breathing mottled skin. Son notified about imminent in next few minutes to hours. Pt had a large emesis. Pt admitted with SOB and fall history of aspiration pneumonia, AF, CHF, paraplegia and old polio, uses a wheelchair in [facility] Cause likely aspiratory pneumonia, sepsis, acute respiratory failure, chf exacerbation. Pt is moaning in pain start pain medication and anxiolytic Pt is DNR Family will try to come and visit pt soon. Understand pt is actively dying. Updated about her medical problems. Additional Data Attending physician: Ada Ramirez MD
== END 2020-04-03 14:00 | disposition expired | DRG 189 ==
PROVIDERS: Admitting Provider Student in an Organized Health Care Education/Training Program; Visit Provider Family Medicine
DX: J96.01 Acute respiratory failure with hypoxia (principal); J18.9 Pneumonia, unspecified organism; I50.23 Acute on chronic systolic (congestive) heart failure; S72.491A Other fracture of lower end of right femur, initial encounter for closed fracture; G82.20 Paraplegia, unspecified; I48.19 Other persistent atrial fibrillation; I11.0 Hypertensive heart disease with heart failure; W05.0XXA Fall from non-moving wheelchair, initial encounter; Z66 Do not resuscitate; B91 Sequelae of poliomyelitis; I07.1 Rheumatic tricuspid insufficiency; G47.33 Obstructive sleep apnea (adult) (pediatric); E83.52 Hypercalcemia; M81.0 Age-related osteoporosis without current pathological fracture; M17.11 Unilateral primary osteoarthritis, right knee; F41.8 Other specified anxiety disorders; K59.00 Constipation, unspecified; Z79.01 Long term (current) use of anticoagulants; Z79.899 Other long term (current) drug therapy; Z87.891 Personal history of nicotine dependence
CPT/HCPCS: 36415; 36600; 71045; 80048; 82805; 83735; 85025; 93306; A9270; J0282; J1940; J2060; J2270